=== PATIENT | female | born 1975 | race Caucasian/White ===

== ENCOUNTER → 2016-05-29 | Outpatient (CLI) | payer MEDICAID, OTHER | LOC: MW.CHRC 14:40 | PROVIDERS: ATTEND Family Medicine | DX: N20.0 Calculus of kidney (principal); N39.0 Urinary tract infection, site not specified | CPT/HCPCS: 81001; 87086 ==

== ENCOUNTER 2016-09-09 14:38 | Emergency (ER) | payer SELFPAY ==
--- NOTE | 2016-09-09 14:53 | EDM.PDOC ---
ED HPI GENERAL MEDICAL PROBLEM - General Chief Complaint: Flank Pain Stated Complaint: PAIN ON URINATION Time Seen by Provider: 09/09/16 14:49 - History of Present Illness INITIAL COMMENTS - FREE TEXT/NARRATIVE: HISTORY AND PHYSICAL: History of present illness: Patient 41-year-old female presents with a concern of dysuria frequency and right flank pain she has had both urinary tract infections in the past with similar symptoms as well as urolithiasis denies nausea vomiting fever chills or other complaints is been no trauma patient has had hysterectomy Review of systems: As per history of present illness and below otherwise all systems reviewed and negative. Past medical history: As per history of present illness and as reviewed below otherwise noncontributory. Surgical history: As per history of present illness and as reviewed below otherwise noncontributory. Social history: No reported history of drug or alcohol abuse. Family history: As per history of present illness and as reviewed below otherwise noncontributory. Physical exam: HEENT: Atraumatic, normocephalic, pupils reactive, negative for conjunctival pallor or scleral icterus, mucous membranes moist, throat clear, neck supple, nontender, trachea midline. Lungs: Clear to auscultation, breath sounds equal bilaterally, chest nontender. Heart: S1S2, regular, negative for clicks, rubs, or JVD. Abdomen: Soft, nondistended, nontender. Negative for masses or hepatosplenomegaly. Equivocal right-sided costovertebral tenderness. Pelvis: Stable nontender. Genitourinary: Deferred. Rectal: Deferred. Extremities: Atraumatic, negative for cords or calf pain. Neurovascular unremarkable. Neuro: Awake, alert, oriented. Cranial nerves II through XII unremarkable. Cerebellum unremarkable. Motor and sensory unremarkable throughout. Exam nonfocal. Diagnostics: UA C&S CT abdomen and pelvis Therapeutics: None Impression: #1 dysuria #2 history of urolithiasis Definitive disposition and diagnosis as appropriate pending reevaluation and review of above. Right Flank Pain Score (Numeric/FACES): 7 - Related Data Allergies Allergy/AdvReac Type Severity Reaction Status Date / Time acetaminophen Allergy Other Verified 09/09/16 14:48 [From Darvocet-N] codeine Allergy Itching Verified 09/09/16 14:48 ketorolac tromethamine Allergy Burning Verified 09/09/16 14:48 [From Toradol] propoxyphene napsylate Allergy Other Verified 09/09/16 14:48 [From Darvocet-N] tramadol Allergy Burning Verified 09/09/16 14:48 Home Meds: Home Meds Cyclobenzaprine [Flexeril] 10 mg PO TID 09/09/16 [History] SUMAtriptan [Imitrex] 50 mg PO ASDIRECTED PRN 09/09/16 [History] Past Medical History Genitourinary History: Reports: Renal Calculus, UTI, 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: Musculoskeletal History: Reports: Fracture - Past Surgical History HEENT Surgical History: Reports: Oral Surgery, Tonsillectomy Social & Family History - Family History Family Medical History: Noncontributory - Tobacco Use Smoking Status *Q: Current Every Day Smoker Years of Tobacco use: 26 Packs/Tins Daily: 0.5 Used Tobacco, but Quit: No Second Hand Smoke Exposure: Yes - Caffeine Use Caffeine Use: Reports: Soda - Alcohol Use Days Per Week of Alcohol Use: 0 - Recreational Drug Use Recreational Drug Use: No ED ROS GENERAL - Review of Systems Review Of Systems: ROS reveals no pertinent complaints other than HPI. ED EXAM, GENERAL - Physical Exam Exam: See Below (See dictation) Course - Vital Signs Last Recorded V/S: Last Vital Signs Temp 37.1 C 09/09/16 14:45 Pulse 99 09/09/16 14:45 Resp 18 09/09/16 14:45 BP 123/87 09/09/16 14:45 Pulse Ox 95 09/09/16 14:45 - Orders/Labs/Meds Orders: Active Orders 24 hr Category Date Time Status CULTURE URINE [RM] Stat Lab 09/09/16 14:50 Received Labs: Laboratory Tests 09/09/16 Range/Units 14:50 Urine Color ORANGE Urine Appearance SLT CLOUDY Urine pH 6.5 (5.0-8.0) Ur Specific [place] 1.010 (1.001-1.035) Urine Protein >=300 (NEGATIVE) mg/dL Urine Glucose (UA) 500 H (NEGATIVE) mg/dL Urine Ketones 15 H (NEGATIVE) mg/dL Urine Occult Blood LARGE H (NEGATIVE) Urine Nitrite POSITIVE H (NEGATIVE) Urine Bilirubin NEGATIVE (NEGATIVE) Urine Urobilinogen >=8.0 H (<2.0) EU/dL Ur Leukocyte Esterase MODERATE (NEGATIVE) Urine RBC 5-10 (0-2/HPF) Urine WBC 4-8 (0-5/HPF) Ur Epithelial Cells OCCASIONAL (NONE-FEW) Urine Bacteria FEW (NEGATIVE) Urinalysis Comment Departure - Departure Time of Disposition: 16:41 Disposition: Home, Self-Care 01 Condition: Good Clinical Impression: UTI, Urinary tract infectious disease - Discharge Information Referrals: PCP,Unknown [Primary Care Provider] - Forms: ED Department Discharge Additional Instructions: The following information is given to patients seen in the emergency department who are being discharged to home. This information is to outline your options for follow-up care. We provide all patients seen in our emergency department with a follow-up referral. The need for follow-up, as well as the timing and circumstances, are variable depending upon the specifics of your emergency department visit. If you don't have a primary care physician on staff, we will provide you with a referral. We always advise you to contact your personal physician following an emergency department visit to inform them of the circumstance of the visit and for follow-up with them and/or the need for any referrals to a consulting specialist. The emergency department will also refer you to a specialist when appropriate. This referral assures that you have the opportunity for followup care with a specialist. All of these measure are taken in an effort to provide you with optimal care, which includes your followup. Under all circumstances we always encourage you to contact your private physician who remains a resource for coordinating your care. When calling for followup care, please make the office aware that this follow-up is from your recent emergency room visit. If for any reason you are refused follow-up, please contact the [facility] emergency department at and asked to speak to the emergency department charge nurse. Cipro as prescribed follow-up primary medical doctor 1-2 days return as needed as discussed - My Orders Last 24 Hours: My Active Orders 09/09/16 14:50 CULTURE URINE [RM] Stat - Assessment/Plan Last 24 Hours: My Active Orders 09/09/16 14:50 CULTURE URINE [RM] Stat
--- NOTE | 2016-09-09 15:54 | CT ---
CT of the abdomen and pelvis without contrast. HISTORY: Pain TECHNIQUE: Axial CT images were obtained of the abdomen and pelvis without contrast. Coronal and sag ittal reconstructions obtained. FINDINGS: The lung bases are clear, no pleural effusion. The liver, spleen, adrenal glands, and pancreas appear unremarkable for noncontrast examination. Cho lecystectomy with mild prominence of the bile duct. There is no bulky retroperitoneal lymphadenopath y. No abdominal ascites. Punctate nonobstructing nephrolithiasis bilaterally. No evidence of obstructive uropathy bilaterally . The large and small bowel are normal in caliber without evidence of obstruction. No pericecal inflam mation. There is no bulky pelvic lymphadenopathy. No free fluid. No free air. The urinary bladder ap pears normal. Pelvic phleboliths are noted. The visualized osseous structures appear normal. IMPRESSION: 1. Nonobstructing nephrolithiasis noted bilaterally. 2. Otherwise no acute findings within the abdomen or pelvis. 3. Cholecystectomy
[2016-09-09 16:53] VITALS: BP 120/87
== END 2016-09-09 16:54 | disposition home or self-care (01) ==
LOC: MW.ED 14:38
DX: N39.0 Urinary tract infection, site not specified (principal); F17.210 Nicotine dependence, cigarettes, uncomplicated; Z98.890 Other specified postprocedural states; Z88.5 Allergy status to narcotic agent; Z88.6 Allergy status to analgesic agent; Z88.8 Allergy status to other drugs, medicaments and biological substances; Z90.710 Acquired absence of both cervix and uterus
CPT/HCPCS: 74176; 74176-26; 81001; 87086; 87088; 87186; 99284; 99284-25

== ENCOUNTER 2016-09-30 10:58 | Emergency (ER) | payer SELFPAY ==
[2016-09-30] MEDS ORDERED: Sodium Chloride 0.9% 10 ML Syringe FLUSH PRN (11:31)
[2016-09-30] MEDS ORDERED: Sodium Chloride 0.9% 2.5 ML Syringe FLUSH PRN (11:31)
[2016-09-30] MEDS ORDERED: cefTRIAXone 1 GM in Premix Bag 1 BAG IV ONE (11:35)
[2016-09-30] MEDS ORDERED: Sodium Chloride 0.9% 1,000 ML IV ONE ×2 (11:35→12:34)
--- NOTE | 2016-09-30 11:39 | EDM.PDOC ---
ED HPI GENERAL MEDICAL PROBLEM - General Chief Complaint: Genitourinary Problem Stated Complaint: URINARY PAIN Time Seen by Provider: 09/30/16 11:01 Source of Information: Reports: Patient History Limitations: Reports: No Limitations - History of Present Illness INITIAL COMMENTS - FREE TEXT/NARRATIVE: HISTORY AND PHYSICAL: []41-year-old female presenting with flank pain abdominal pain return of her urinary symptoms History of Present Illness: []Patient was seen 09/09/16 and diagnosed with pyelonephritis she has been on ciprofloxacin since that time Symptoms started to recur at 4:30 this morning Review of Systems: As per history of present illness and below otherwise all systems reviewed and negative. Past medical history: As per history of present illness and as reviewed below otherwise noncontributory. Surgical history: As per history of present illness and as reviewed below otherwise noncontributory. Social history: No reported history of drug or alcohol abuse. Family history: As per history of present illness and as reviewed below otherwise noncontributory. Physical exam: Alert and oriented female answering questions appropriately she has significant "shaking" HEENT: Atraumatic, normocehpalic, pupils reactive, negative for conjunctival pallor or scleral icterus, mucous membranes moist, throat clear, neck supple, nontender, trachea midline. Lungs: Clear to auscultation, breath sounds equal bilaterally, chest non tender. Heart: S1S2, regular, negative for clicks, rubs, or JVD. Abdomen: Soft, nondistended, nontender. Negative for masses or hepatossplenmegaly. Exquisitely tender right costovertebral. Pelvis: Stable nontender. Genitourinary: Deferred. Rectal: Deferred Extremities: Atraumatic, negative for cords or calf pain. Neurovascular unremarkable. Neuro: Awake, alert, oriented. Cranial nerves II through XII unremarkable. Cerebellum unremarkable. Motor and sensory unremarkable throughout. Exam nonfocal. Diagnostics: [CBC CMP blood cultures 2 urine urine culture] Therapeutics: [Normal saline/Rocephin 1 g IV] Impression: [Pyelonephritis] Plan: [Patient is tolerated all procedures well has kept fluids down IV fluids 2 L were tolerated home and daily Levaquin] Definitive disposition and diagnosis as appropriate pending reevaluation and review of above. Onset: Sudden Duration: Hour(s): Location: Reports: Abdomen, Back Quality: Reports: Throbbing Severity: Moderate Improves with: Reports: None Worsens with: Reports: None left flank Pain Score (Numeric/FACES): 8 - Related Data Allergies Allergy/AdvReac Type Severity Reaction Status Date / Time acetaminophen Allergy Other Verified 09/30/16 11:26 [From Darvocet-N] codeine Allergy Itching Verified 09/30/16 11:26 ketorolac tromethamine Allergy Burning Verified 09/30/16 11:26 [From Toradol] propoxyphene napsylate Allergy Other Verified 09/30/16 11:26 [From Darvocet-N] tramadol Allergy Burning Verified 09/30/16 11:26 Home Meds: Home Meds Cyclobenzaprine [Flexeril] 10 mg PO TID PRN 09/09/16 [History] SUMAtriptan [Imitrex] mg PO ASDIRECTED PRN 09/09/16 [History] Levofloxacin [Levaquin] 750 mg PO DAILY #10 tablet 09/30/16 [Rx] Ondansetron [Zofran ODT] 4 mg PO Q6H #10 tab.dis 09/30/16 [Rx] Past Medical History Genitourinary History: Reports: Renal Calculus, UTI, 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: Musculoskeletal History: Reports: Fracture Neurological History: Reports: Migraines - Infectious Disease History Infectious Disease History: Reports: Other (See Below) Other Infectious Disease History: [place] measles - Past Surgical History HEENT Surgical History: Reports: Oral Surgery, Tonsillectomy GI Surgical History: Reports: Appendectomy, Cholecystectomy Social & Family History - Family History Family Medical History: Noncontributory - Tobacco Use Smoking Status *Q: Current Every Day Smoker Years of Tobacco use: 27 Packs/Tins Daily: 1 Used Tobacco, but Quit: No Second Hand Smoke Exposure: Yes - Caffeine Use Caffeine Use: Reports: Soda - Alcohol Use Days Per Week of Alcohol Use: 0 - Recreational Drug Use Recreational Drug Use: No ED ROS GENERAL - Review of Systems Review Of Systems: ROS reveals no pertinent complaints other than HPI. ED EXAM, RENAL/ - Physical Exam Exam: See Below (See dictation) Course - Vital Signs Last Recorded V/S: Last Vital Signs Temp 37.6 C 09/30/16 12:49 Pulse 79 09/30/16 13:30 Resp 18 09/30/16 13:30 BP 101/53 L 09/30/16 13:30 Pulse Ox 96 09/30/16 13:30 - Orders/Labs/Meds Orders: Active Orders 24 hr Category Date Time Status CULTURE BLOOD [BC] Stat Lab 09/30/16 11:49 Received CULTURE BLOOD [BC] Stat Lab 09/30/16 12:02 Received CULTURE URINE [RM] Stat Lab 09/30/16 11:30 Received Sodium Chloride 0.9% [Saline Flush] Med 09/30/16 11:31 Active 10 ml FLUSH ASDIRECTED PRN Sodium Chloride 0.9% [Saline Flush] Med 09/30/16 11:31 Active 2.5 ml FLUSH ASDIRECTED PRN Blood Culture x2 Reflex Set [OM.PC] Stat Oth 09/30/16 11:32 Ordered Saline Lock Insert [OM.PC] Stat Oth 09/30/16 11:31 Ordered Medication Orders Sodium Chloride (Saline Flush) 10 ml FLUSH ASDIRECTED PRN PRN Reason: Keep Vein Open Sodium Chloride (Saline Flush) 2.5 ml FLUSH ASDIRECTED PRN PRN Reason: Keep Vein Open Labs: Laboratory Tests 09/30/16 09/30/16 09/30/16 Range/Units 11:30 11:49 11:49 WBC 13.18 H (4.0-11.0) K/uL RBC 4.42 (4.30-5.90) M/uL Hgb 14.1 (12.0-16.0) g/dL Hct 42.0 (36.0-46.0) % MCV 95.0 (80.0-98.0) fL MCH 31.9 (27.0-32.0) pg MCHC 33.6 (31.0-37.0) g/dL RDW Std Deviation 48.0 (28.0-62.0) fl RDW Coeff of Latha 14 (11.0-15.0) % Plt Count 307 (150-400) K/uL MPV 9.70 (7.40-12.00) fL Neut % (Auto) 83.0 H (48.0-80.0) % Lymph % (Auto) 13.9 L (16.0-40.0) % [place] % (Auto) 2.5 (0.0-15.0) % Eos % (Auto) 0.4 (0.0-7.0) % Baso % (Auto) 0.2 (0.0-1.5) % Neut # (Auto) 11.0 H (1.4-5.7) K/uL Lymph # (Auto) 1.8 (0.6-2.4) K/uL [place] # (Auto) 0.3 (0.0-0.8) K/uL Eos # (Auto) 0.1 (0.0-0.7) K/uL Baso # (Auto) 0.0 (0.0-0.1) K/uL Nucleated RBC % 0.0 /100WBC Nucleated RBCs # 0 K/uL Lactate 1.4 (0.20-2.00) mmol/L Sodium (136-146) mmol/L Potassium (3.5-5.1) mmol/L Chloride (98-110) mmol/L Carbon Dioxide (21-31) mmol/L BUN (6.0-23.0) mg/dL Creatinine (0.6-1.5) mg/dL Est Cr Clr Drug Dosing mL/min Estimated GFR (MDRD) ml/min Glucose (60-110) mg/dL Calcium (8.8-10.8) mg/dL Total Bilirubin (0.1-1.5) mg/dL AST (5-40) IU/L ALT (8-54) IU/L Alkaline Phosphatase (40-150) Total Protein (6.0-8.0) g/dL Albumin (3.5-5.0) g/dL Globulin (2.0-3.5) g/dL Albumin/Globulin Ratio (1.3-2.8) Urine Color YELLOW Urine Appearance HAZY Urine pH 6.0 (5.0-8.0) Ur Specific [place] 1.020 (1.001-1.035) Urine Protein 30 (NEGATIVE) mg/dL Urine Glucose (UA) NEGATIVE (NEGATIVE) mg/dL Urine Ketones NEGATIVE (NEGATIVE) mg/dL Urine Occult Blood MODERATE (NEGATIVE) Urine Nitrite POSITIVE H (NEGATIVE) Urine Bilirubin NEGATIVE (NEGATIVE) Urine Urobilinogen >=8.0 H (<2.0) EU/dL Ur Leukocyte Esterase MODERATE (NEGATIVE) Urine RBC 4-6 (0-2/HPF) Urine WBC 20-25 (0-5/HPF) Ur Epithelial Cells FEW (NONE-FEW) Urine Bacteria 1+ H (NEGATIVE) 09/30/16 Range/Units 11:49 WBC (4.0-11.0) K/uL RBC (4.30-5.90) M/uL Hgb (12.0-16.0) g/dL Hct (36.0-46.0) % MCV (80.0-98.0) fL MCH (27.0-32.0) pg MCHC (31.0-37.0) g/dL RDW Std Deviation (28.0-62.0) fl RDW Coeff of [place] (11.0-15.0) % Plt Count (150-400) K/uL MPV (7.40-12.00) fL Neut % (Auto) (48.0-80.0) % Lymph % (Auto) (16.0-40.0) % [place] % (Auto) (0.0-15.0) % Eos % (Auto) (0.0-7.0) % Baso % (Auto) (0.0-1.5) % Neut # (Auto) (1.4-5.7) K/uL Lymph # (Auto) (0.6-2.4) K/uL [place] # (Auto) (0.0-0.8) K/uL Eos # (Auto) (0.0-0.7) K/uL Baso # (Auto) (0.0-0.1) K/uL Nucleated RBC % /100WBC Nucleated RBCs # K/uL Lactate (0.20-2.00) mmol/L Sodium 140 (136-146) mmol/L Potassium 3.5 (3.5-5.1) mmol/L Chloride 107 (98-110) mmol/L Carbon Dioxide 22 (21-31) mmol/L BUN 4 L (6.0-23.0) mg/dL Creatinine 0.8 (0.6-1.5) mg/dL Est Cr Clr Drug Dosing 78.10 mL/min Estimated GFR (MDRD) > 60.0 ml/min Glucose 104 (60-110) mg/dL Calcium 9.2 (8.8-10.8) mg/dL Total Bilirubin 1.5 (0.1-1.5) mg/dL AST 157 H (5-40) IU/L ALT 102 H (8-54) IU/L Alkaline Phosphatase 185 H (40-150) Total Protein 7.4 (6.0-8.0) g/dL Albumin 4.0 (3.5-5.0) g/dL Globulin 3.4 (2.0-3.5) g/dL Albumin/Globulin Ratio 1.2 L (1.3-2.8) Urine Color Urine Appearance Urine pH (5.0-8.0) Ur Specific [place] (1.001-1.035) Urine Protein (NEGATIVE) mg/dL Urine Glucose (UA) (NEGATIVE) mg/dL Urine Ketones (NEGATIVE) mg/dL Urine Occult Blood (NEGATIVE) Urine Nitrite (NEGATIVE) Urine Bilirubin (NEGATIVE) Urine Urobilinogen (<2.0) EU/dL Ur Leukocyte Esterase (NEGATIVE) Urine RBC (0-2/HPF) Urine WBC (0-5/HPF) Ur Epithelial Cells (NONE-FEW) Urine Bacteria (NEGATIVE) Meds: Medications Generic Name Dose Route Start Last Admin Trade Name Freq PRN Reason Stop Dose Admin Sodium Chloride 10 ml 09/30/16 11:31 Saline Flush FLUSH ASDIRECTED PRN Keep Vein Open Sodium Chloride 2.5 ml 09/30/16 11:31 Saline Flush FLUSH ASDIRECTED PRN Keep Vein Open Discontinued Medications Generic Name Dose Route Start Last Admin Trade Name Frekash PRN Reason Stop Dose Admin Sodium Chloride 1,000 mls @ 999 mls/hr 09/30/16 11:35 09/30/16 12:39 Normal Saline IV 09/30/16 12:35 999 mls/hr STAT ONE Infusion Ceftriaxone Sodium/Dextrose 1 50 mls @ 100 mls/hr 09/30/16 11:35 09/30/16 12: 06 gm/ Premix IV 09/30/16 12:04 100 mls/hr ONETIME ONE Administration Sodium Chloride 1,000 mls @ 999 mls/hr 09/30/16 12:34 09/30/16 13:24 Normal Saline IV 09/30/16 13:34 999 mls/hr STAT ONE Administration Ibuprofen 800 mg 09/30/16 12:10 09/30/16 12:47 Motrin PO 09/30/16 12:11 800 mg ONETIME ONE Administration Morphine Sulfate 2 mg 09/30/16 12:56 09/30/16 13:51 Morphine IV 09/30/16 12:57 Not Given ONETIME ONE Morphine Sulfate 2 mg 09/30/16 13:39 09/30/16 13:50 Morphine IVPUSH 09/30/16 13:40 2 mg ONETIME ONE Administration Ondansetron HCl 4 mg 09/30/16 11:41 09/30/16 11:53 Zofran IVPUSH 09/30/16 11:42 4 mg ONETIME ONE Administration Departure - Departure Time of Disposition: 14:16 Disposition: Home, Self-Care 01 Condition: Good Clinical Impression: Pyelonephritis - Discharge Information Prescriptions: Levofloxacin [Levaquin] 750 mg PO DAILY #10 tablet Ondansetron [Zofran ODT] 4 mg PO Q6H #10 tab.dis Referrals: Shalonda Sams MD [Primary Care Provider] - Forms: ED Department Discharge - My Orders Last 24 Hours: My Active Orders 09/30/16 11:30 CULTURE URINE [RM] Stat 09/30/16 11:31 Sodium Chloride 0.9% [Saline Flush] 10 ml FLUSH ASDIRECTED PRN Sodium Chloride 0.9% [Saline Flush] 2.5 ml FLUSH ASDIRECTED PRN Saline Lock Insert [OM.PC] Stat 09/30/16 11:32 Blood Culture x2 Reflex Set [OM.PC] Stat 09/30/16 11:49 CULTURE BLOOD [BC] Stat 09/30/16 12:02 CULTURE BLOOD [BC] Stat - Assessment/Plan Last 24 Hours: My Active Orders 09/30/16 11:30 CULTURE URINE [RM] Stat 09/30/16 11:31 Sodium Chloride 0.9% [Saline Flush] 10 ml FLUSH ASDIRECTED PRN Sodium Chloride 0.9% [Saline Flush] 2.5 ml FLUSH ASDIRECTED PRN Saline Lock Insert [OM.PC] Stat 09/30/16 11:32 Blood Culture x2 Reflex Set [OM.PC] Stat 09/30/16 11:49 CULTURE BLOOD [BC] Stat 09/30/16 12:02 CULTURE BLOOD [BC] Stat
[2016-09-30] MEDS ORDERED: Ondansetron 4 MG/2 ML SDV IVPUSH ONE (11:41)
[2016-09-30] MEDS ORDERED: Ibuprofen 800 MG Tab PO ONE (12:10)
[2016-09-30 12:34] LABS: CHLORIDE,CL 107 mmol/L (98-110); SODIUM,NA 140 mmol/L (136-146)
[2016-09-30] MEDS ORDERED: Morphine 10 MG/ML Syringe IV ONE (12:56)
[2016-09-30] MEDS ORDERED: Morphine 2 MG/ML Syringe IVPUSH ONE (13:39)
[2016-09-30 19:32] VITALS: BP 102/53
== END 2016-09-30 14:35 | disposition home or self-care (01) ==
LOC: MW.ED 10:58
DX: N12 Tubulo-interstitial nephritis, not specified as acute or chronic (principal); F17.210 Nicotine dependence, cigarettes, uncomplicated; Z90.49 Acquired absence of other specified parts of digestive tract; Z98.890 Other specified postprocedural states; Z79.2 Long term (current) use of antibiotics; Z88.5 Allergy status to narcotic agent; Z88.6 Allergy status to analgesic agent; Z88.8 Allergy status to other drugs, medicaments and biological substances
CPT/HCPCS: 36415; 80053; 81001; 83605; 85025; 87040; 87086; 96361; 96365; 96375; 99284; A9270; J0696; J2270; J2405; J7040; 87077; 87088; 87186

== ENCOUNTER 2017-09-15 16:30 | Emergency (ER) | payer BC, OTHER ==
--- NOTE | 2017-09-15 17:03 | EDM.PDOC ---
ED HPI GENERAL MEDICAL PROBLEM - General Chief Complaint: General Stated Complaint: POSSIBLE INFECTION RT FOOT/POSS KIDNEY INFECTION Time Seen by Provider: 09/15/17 16:34 Source of Information: Reports: Patient History Limitations: Reports: No Limitations - History of Present Illness INITIAL COMMENTS - FREE TEXT/NARRATIVE: HISTORY AND PHYSICAL: History of present illness: [Eliza is a 42-year-old female here with complaint of possibly kidney infection and right foot infection. She states she's had dysuria, urinary frequency, right flank pain x 2 days. Chills last night. She reports history of pyelonephritis and kidney stones, states she has been seen a neurologist for this. States she's been nauseous and has had some diarrhea. She reports hematuria but states "this is not unusual for her."She states it is not a kidney infection as she knows what this feels like. Denies vomiting, abdominal pain, cough, chest pain/pressure, SOB, headache, dizziness, vaginal discharge. She also reports she cut her foot on a hose 5-6 days ago. Reports it has been draining and becoming more painful. ] Review of systems: As per history of present illness and below otherwise all systems reviewed and negative. Past medical history: As per history of present illness and as reviewed below otherwise noncontributory. Surgical history: As per history of present illness and as reviewed below otherwise noncontributory. Social history: No reported history of drug or alcohol abuse. Family history: As per history of present illness and as reviewed below otherwise noncontributory. Physical exam: HEENT: Atraumatic, normocephalic, pupils reactive, negative for conjunctival pallor or scleral icterus, mucous membranes moist, throat clear, neck supple, nontender, trachea midline. Lungs: Clear to auscultation, breath sounds equal bilaterally, chest nontender. Heart: S1S2, regular, negative for clicks, rubs, or JVD. Abdomen: Mild suprapubic tenderness. Negative for masses or hepatosplenomegaly. Right CVA tenderness. Pelvis: Stable nontender. Genitourinary: Deferred. Rectal: Deferred. Skin: 1cm healing ulceration on the medial part of the right great toe. Very minimal surrounding erythema and no warmth or drainage noted. Extremities: Atraumatic, negative for cords or calf pain. Neurovascular unremarkable. Neuro: Awake, alert, oriented. Cranial nerves II through XII unremarkable. Cerebellum unremarkable. Motor and sensory unremarkable throughout. Exam nonfocal. Notes: Patient offered CT scan to look for kidney stones which she declined Diagnostics: [CBC, CMP, UA, urine culture, urine hcg] Therapeutics: [Bactrim ] Impression: [Wound infection Hematuria] Plan: [#1 Take antibiotic as directed #2 follow up with your PCP #3 return to ED as needed as discussed ] Definitive disposition and diagnosis as appropriate pending reevaluation and review of above. right big toe , right flank pain Pain Score (Numeric/FACES): 7 - Related Data Allergies Allergy/AdvReac Type Severity Reaction Status Date / Time acetaminophen Allergy Other Verified 09/15/17 16:51 [From Darvocet-N] codeine Allergy Itching Verified 09/15/17 16:51 ketorolac tromethamine Allergy Burning Verified 09/15/17 16:51 [From Toradol] propoxyphene napsylate Allergy Other Verified 09/15/17 16:51 [From Darvocet-N] tramadol Allergy Burning Verified 09/15/17 16:51 Home Meds: Home Meds . 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: Musculoskeletal History: Reports: Fracture Neurological History: Reports: Migraines - Infectious Disease History Infectious Disease History: Reports: Other (See Below) Other Infectious Disease History: citizen of [place] measles - Past Surgical History HEENT Surgical History: Reports: Oral Surgery, Tonsillectomy GI Surgical History: Reports: Appendectomy, Cholecystectomy Social & Family History - Family History Family Medical History: Noncontributory - Caffeine Use Caffeine Use: Reports: Soda ED ROS GENERAL - Review of Systems Review Of Systems: ROS reveals no pertinent complaints other than HPI. ED EXAM, GENERAL - Physical Exam Exam: See Below (see dictation) Course - Vital Signs Last Recorded V/S: Last Vital Signs Temp 36.2 C 09/15/17 16:51 Pulse 98 09/15/17 16:51 Resp 20 09/15/17 16:51 BP 110/79 09/15/17 16:51 Pulse Ox 98 09/15/17 16:51 - Orders/Labs/Meds Orders: Active Orders 24 hr Category Date Time Status CULTURE URINE [RM] Stat Lab 09/15/17 17:29 Received HCG QUALITATIVE,URINE [URCHEM] Stat Lab 09/15/17 17:29 Ordered UA W/MICROSCOPIC [URIN] Stat Lab 09/15/17 17:29 Ordered Labs: Laboratory Tests 09/15/17 09/15/17 09/15/17 Range/Units 16:58 16:58 17:29 WBC 12.63 H (4.0-11.0) K/uL RBC 4.56 (4.30-5.90) M/uL Hgb 15.0 (12.0-16.0) g/dL Hct 42.7 (36.0-46.0) % MCV 93.6 (80.0-98.0) fL MCH 32.9 H (27.0-32.0) pg MCHC 35.1 (31.0-37.0) g/dL RDW Std Deviation 48.8 (28.0-62.0) fl RDW Coeff of [place] 14 (11.0-15.0) % Plt Count 373 (150-400) K/uL MPV 10.50 (7.40-12.00) fL Neut % (Auto) 67.1 (48.0-80.0) % Lymph % (Auto) 24.6 (16.0-40.0) % [place] % (Auto) 6.7 (0.0-15.0) % Eos % (Auto) 1.2 (0.0-7.0) % Baso % (Auto) 0.4 (0.0-1.5) % Neut # (Auto) 8.5 H (1.4-5.7) K/uL Lymph # (Auto) 3.1 H (0.6-2.4) K/uL [place] # (Auto) 0.8 (0.0-0.8) K/uL Eos # (Auto) 0.2 (0.0-0.7) K/uL Baso # (Auto) 0.1 (0.0-0.1) K/uL Nucleated RBC % 0.0 /100WBC Nucleated RBCs # 0 K/uL Sodium 137 (136-145) mmol/L Potassium 4.0 (3.5-5.1) mmol/L Chloride 105 (98-107) mmol/L Carbon Dioxide 26.4 (21.0-32.0) mmol/L BUN 8 (7.0-18.0) mg/dL Creatinine 0.9 (0.6-1.0) mg/dL Est Cr Clr Drug Dosing 77.79 mL/min Estimated GFR (MDRD) > 60.0 ml/min Glucose 83 (74-106) mg/dL Calcium 9.0 (8.5-10.1) mg/dL Total Bilirubin 0.5 (0.2-1.0) mg/dL AST 39 H (15-37) IU/L ALT 47 (14-63) IU/L Alkaline Phosphatase 104 (46-116) U/L Total Protein 7.2 (6.4-8.2) g/dL Albumin 3.6 (3.4-5.0) g/dL Globulin 3.6 H (2.0-3.5) g/dL Albumin/Globulin Ratio 1.0 L (1.3-2.8) Urine Color YELLOW Urine Appearance CLEAR Urine pH 5.5 (5.0-8.0) Ur Specific [place] <= 1.005 (1.001-1.035) Urine Protein NEGATIVE (NEGATIVE) mg/dL Urine Glucose (UA) NEGATIVE (NEGATIVE) mg/dL Urine Ketones NEGATIVE (NEGATIVE) mg/dL Urine Occult Blood LARGE H (NEGATIVE) Urine Nitrite NEGATIVE (NEGATIVE) Urine Bilirubin NEGATIVE (NEGATIVE) Urine Urobilinogen 0.2 (<2.0) EU/dL Ur Leukocyte Esterase NEGATIVE (NEGATIVE) Urine RBC 10-15 (0-2/HPF) Urine WBC 0-2 (0-5/HPF) Ur Epithelial Cells MODERATE (NONE-FEW) Urine Bacteria FEW (NEGATIVE) Urine HCG, Qual (NEGATIVE) 09/15/17 Range/Units 17:29 WBC (4.0-11.0) K/uL RBC (4.30-5.90) M/uL Hgb (12.0-16.0) g/dL Hct (36.0-46.0) % MCV (80.0-98.0) fL MCH (27.0-32.0) pg MCHC (31.0-37.0) g/dL RDW Std Deviation (28.0-62.0) fl RDW Coeff of [place] (11.0-15.0) % Plt Count (150-400) K/uL MPV (7.40-12.00) fL Neut % (Auto) (48.0-80.0) % Lymph % (Auto) (16.0-40.0) % [place] % (Auto) (0.0-15.0) % Eos % (Auto) (0.0-7.0) % Baso % (Auto) (0.0-1.5) % Neut # (Auto) (1.4-5.7) K/uL Lymph # (Auto) (0.6-2.4) K/uL [place] # (Auto) (0.0-0.8) K/uL Eos # (Auto) (0.0-0.7) K/uL Baso # (Auto) (0.0-0.1) K/uL Nucleated RBC % /100WBC Nucleated RBCs # K/uL Sodium (136-145) mmol/L Potassium (3.5-5.1) mmol/L Chloride (98-107) mmol/L Carbon Dioxide (21.0-32.0) mmol/L BUN (7.0-18.0) mg/dL Creatinine (0.6-1.0) mg/dL Est Cr Clr Drug Dosing mL/min Estimated GFR (MDRD) ml/min Glucose (74-106) mg/dL Calcium (8.5-10.1) mg/dL Total Bilirubin (0.2-1.0) mg/dL AST (15-37) IU/L ALT (14-63) IU/L Alkaline Phosphatase (46-116) U/L Total Protein (6.4-8.2) g/dL Albumin (3.4-5.0) g/dL Globulin (2.0-3.5) g/dL Albumin/Globulin Ratio (1.3-2.8) Urine Color Urine Appearance Urine pH (5.0-8.0) Ur Specific [place] (1.001-1.035) Urine Protein (NEGATIVE) mg/dL Urine Glucose (UA) (NEGATIVE) mg/dL Urine Ketones (NEGATIVE) mg/dL Urine Occult Blood (NEGATIVE) Urine Nitrite (NEGATIVE) Urine Bilirubin (NEGATIVE) Urine Urobilinogen (<2.0) EU/dL Ur Leukocyte Esterase (NEGATIVE) Urine RBC (0-2/HPF) Urine WBC (0-5/HPF) Ur Epithelial Cells (NONE-FEW) Urine Bacteria (NEGATIVE) Urine HCG, Qual NEGATIVE (NEGATIVE) Departure - Departure Time of Disposition: 18:16 Disposition: Home, Self-Care 01 Condition: Good Clinical Impression: Wound infection, Hematuria - Discharge Information Referrals: PCP,None [Primary Care Provider] - Forms: ED Department Discharge Additional Instructions: The following information is given to patients seen in the emergency department who are being discharged to home. This information is to outline your options for follow-up care. We provide all patients seen in our emergency department with a follow-up referral. The need for follow-up, as well as the timing and circumstances, are variable depending upon the specifics of your emergency department visit. If you don't have a primary care physician on staff, we will provide you with a referral. We always advise you to contact your personal physician following an emergency department visit to inform them of the circumstance of the visit and for follow-up with them and/or the need for any referrals to a consulting specialist. The emergency department will also refer you to a specialist when appropriate. This referral assures that you have the opportunity for follow-up care with a specialist. All of these measure are taken in an effort to provide you with optimal care, which includes your follow-up. Under all circumstances we always encourage you to contact your private physician who remains a resource for coordinating your care. When calling for follow-up care, please make the office aware that this follow-up is from your recent emergency room visit. If for any reason you are refused follow-up, please contact the [facility] Emergency Department at and asked to speak to the emergency department charge nurse. [facility] [address] [place] [id number] [id number] - My Orders Last 24 Hours: My Active Orders 09/15/17 17:29 CULTURE URINE [RM] Stat HCG QUALITATIVE,URINE [URCHEM] Stat UA W/MICROSCOPIC [URIN] Stat - Assessment/Plan Last 24 Hours: My Active Orders 09/15/17 17:29 CULTURE URINE [RM] Stat HCG QUALITATIVE,URINE [URCHEM] Stat UA W/MICROSCOPIC [URIN] Stat
[2017-09-15 17:32] LABS: CHLORIDE,CL 105 mmol/L (98-107); SODIUM,NA 137 mmol/L (136-145)
[2017-09-15 18:30] VITALS: BP 107/67
== END 2017-09-15 18:30 | disposition home or self-care (01) ==
LOC: MW.ED 16:30
DX: L97.511 Non-pressure chronic ulcer of other part of right foot limited to breakdown of skin (principal); L08.9 Local infection of the skin and subcutaneous tissue, unspecified; R31.9 Hematuria, unspecified; Z88.6 Allergy status to analgesic agent; Z88.5 Allergy status to narcotic agent; Z88.8 Allergy status to other drugs, medicaments and biological substances
CPT/HCPCS: 36415; 80053; 81001; 81025; 85025; 87086; 99283; 99284

== ENCOUNTER 2017-09-16 23:30 | Emergency (ER) | payer BC ==
[2017-09-17 01:24] LABS: CHLORIDE,CL 106 mmol/L (98-107); SODIUM,NA 141 mmol/L (136-145)
[2017-09-17] MEDS ORDERED: Acetaminophen/HYDROcodone 325-10 MG Tab PO ONE (02:33)
--- NOTE | 2017-09-17 02:38 | EDM.PDOC ---
ED HPI GENERAL MEDICAL PROBLEM - General Chief Complaint: Flank Pain Stated Complaint: POSSIBLE KIDNEY STONES Time Seen by Provider: 09/16/17 23:33 Source of Information: Reports: Patient History Limitations: Reports: No Limitations - History of Present Illness INITIAL COMMENTS - FREE TEXT/NARRATIVE: HISTORY AND PHYSICAL: History of present illness: 42-year-old female visiting emergency department with chief complaint of bilateral flank pain 3 days with past medical history kidney stones. Patient states that for the past 3 days she's had bilateral flank pain left worse than right. Today the pain seemed to get more severe so she came in emergency department for further evaluation. She was in emergency department on 09/15 for similar symptoms but at that time denied a CT scan. States that the pain is gotten worse since then. As above patient has a history of kidney stones and has been seeing a multiple coil winder in [place] for this. States that she has not seen them in quite some time because she lost her insurance. She now has insurance and plans to follow-up with him as soon as possible. Patient has associated nausea, vomiting, and chills with no subjective fever. She does have dysuria and hematuria. She denies any abdominal pain, cough, sore throat, or vaginal discharge. Patient currently denies any chest pain, palpitations, shortness of breath, syncopal episodes, or focal neurologic episodes. Patient also states that she has a infection on her right great toe that she was here on 09/15 and was unable to fill her prescription and it has since . On examination patient is acutely tender bilaterally left greater than right flanks. She also has a 1 cm ulceration on the medial right great toe with some surrounding erythema. Patient denies any history of diabetes. Review of systems: As per history of present illness and below otherwise all systems reviewed and negative. Past medical history: As per history of present illness and as reviewed below otherwise noncontributory. Surgical history: As per history of present illness and as reviewed below otherwise noncontributory. Social history: No reported history of drug or alcohol abuse. Family history: As per history of present illness and as reviewed below otherwise noncontributory. Physical exam: Please see above H&P HEENT: Atraumatic, normocephalic, pupils reactive, negative for conjunctival pallor or scleral icterus, mucous membranes moist, throat clear, neck supple, nontender, trachea midline. Lungs: Clear to auscultation, breath sounds equal bilaterally, chest nontender. Heart: S1S2, regular, negative for clicks, rubs, or JVD. Abdomen: Soft, nondistended, nontender. Negative for masses or hepatosplenomegaly. Positive for costovertebral tenderness. Pelvis: Stable nontender. Genitourinary: Deferred. Rectal: Deferred. Extremities: See above, negative for cords or calf pain. Neurovascular unremarkable. Neuro: Awake, alert, oriented. Cranial nerves II through XII unremarkable. Cerebellum unremarkable. Motor and sensory unremarkable throughout. Exam nonfocal. Diagnostics: CBC, CMP, UA/UC, lipase, CT abdomen pelvis, hCG Therapeutics: 10 mg [place] 1 by mouth, Bactrim by mouth twice a day, tamsulosin 0.4 mg by mouth daily 14 days Impression: Bilateral acute renal calculi nonobstructing Plan: CBC, CMP, UA, lipase, hCG were all unremarkable other than positive for blood in the urine. CT abdomen did show numerous small bilateral renal stones measuring up to 2 mm with no ureteral calculi or obstruction seen. Did give the patient 10 mg [place] for pain while she was in the emergency department as well as a prescription for 12 [place] by mouth 10 mg. I also gave her a prescription of tamsulosin for her stones. I instructed her to follow-up with her multiple coil winder now that she has insurance and to collect the stones if possible. In addition she should follow-up with the primary care provider which she has not seen in approximately a year. She is instructed to take medication as prescribed and return to emergency department if she had any new or worsening symptoms. I did give a prescription for Bactrim for her right great toe cellulitis. Definitive disposition and diagnosis as appropriate pending reevaluation and review of above. abdomen Pain Score (Numeric/FACES): 9 - Related Data Allergies Allergy/AdvReac Type Severity Reaction Status Date / Time acetaminophen Allergy Other Verified 09/16/17 23:52 [From Darvocet-N] codeine Allergy Itching Verified 09/16/17 23:52 ketorolac tromethamine Allergy Burning Verified 09/16/17 23:52 [From Toradol] propoxyphene napsylate Allergy Other Verified 09/16/17 23:52 [From Darvocet-N] tramadol Allergy Burning Verified 09/16/17 23:52 Home Meds: Home Meds . 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: Musculoskeletal History: Reports: Fracture Neurological History: Reports: Migraines - Infectious Disease History Infectious Disease History: Reports: Other (See Below) Other Infectious Disease History: [place] measles - Past Surgical History HEENT Surgical History: Reports: Oral Surgery, Tonsillectomy GI Surgical History: Reports: Appendectomy, Cholecystectomy Female Surgical History: Reports: Hysterectomy Social & Family History - Family History Family Medical History: Noncontributory - Tobacco Use Smoking Status *Q: Current Every Day Smoker Years of Tobacco use: 30 Packs/Tins Daily: 1 - Caffeine Use Caffeine Use: Reports: Soda - Recreational Drug Use Recreational Drug Use: No ED ROS GENERAL - Review of Systems Review Of Systems: ROS reveals no pertinent complaints other than HPI. ED EXAM, GENERAL - Physical Exam Exam: See Below Course - Vital Signs Last Recorded V/S: Last Vital Signs Temp 98.1 F 09/17/17 01:24 Pulse 57 L 09/17/17 01:24 Resp 18 09/17/17 01:24 BP 120/66 09/17/17 01:24 Pulse Ox 97 09/17/17 01:24 - Orders/Labs/Meds Orders: Active Orders 24 hr Category Date Time Status Abdomen Pelvis wo Cont [CT] Stat Exams 09/17/17 00:28 Taken CULTURE URINE [RM] Stat Lab 09/17/17 00:00 Received UA W/MICROSCOPIC [URIN] Stat Lab 09/17/17 00:00 Ordered Labs: Laboratory Tests 09/17/17 09/17/17 09/17/17 Range/Units 00:00 00:58 00:58 WBC 9.51 (4.0-11.0) K/uL RBC 4.06 L (4.30-5.90) M/uL Hgb 13.2 (12.0-16.0) g/dL Hct 38.0 (36.0-46.0) % MCV 93.6 (80.0-98.0) fL MCH 32.5 H (27.0-32.0) pg MCHC 34.7 (31.0-37.0) g/dL RDW Std Deviation 48.1 (28.0-62.0) fl RDW Coeff of [place] 14 (11.0-15.0) % Plt Count 310 (150-400) K/uL MPV 9.30 (7.40-12.00) fL Neut % (Auto) 44.8 L (48.0-80.0) % Lymph % (Auto) 46.8 H (16.0-40.0) % [place] % (Auto) 5.8 (0.0-15.0) % Eos % (Auto) 2.0 (0.0-7.0) % Baso % (Auto) 0.6 (0.0-1.5) % Neut # (Auto) 4.3 (1.4-5.7) K/uL Lymph # (Auto) 4.5 H (0.6-2.4) K/uL [place] # (Auto) 0.6 (0.0-0.8) K/uL Eos # (Auto) 0.2 (0.0-0.7) K/uL Baso # (Auto) 0.1 (0.0-0.1) K/uL Nucleated RBC % 0.0 /100WBC Nucleated RBCs # 0 K/uL Sodium 141 (136-145) mmol/L Potassium 3.7 (3.5-5.1) mmol/L Chloride 106 (98-107) mmol/L Carbon Dioxide 29.2 (21.0-32.0) mmol/L BUN 12 (7.0-18.0) mg/dL Creatinine 1.0 (0.6-1.0) mg/dL Est Cr Clr Drug Dosing 61.86 mL/min Estimated GFR (MDRD) > 60.0 ml/min Glucose 93 (74-106) mg/dL Calcium 8.7 (8.5-10.1) mg/dL Total Bilirubin 0.2 (0.2-1.0) mg/dL AST 20 (15-37) IU/L ALT 32 (14-63) IU/L Alkaline Phosphatase 93 (46-116) U/L Total Protein 6.8 (6.4-8.2) g/dL Albumin 3.5 (3.4-5.0) g/dL Globulin 3.3 (2.0-3.5) g/dL Albumin/Globulin Ratio 1.1 L (1.3-2.8) Lipase 171 (73-393) U/L HCG, Qual (NEG) Urine Color YELLOW Urine Appearance SLT CLOUDY Urine pH 6.0 (5.0-8.0) Ur Specific [place] 1.025 (1.001-1.035) Urine Protein NEGATIVE (NEGATIVE) mg/dL Urine Glucose (UA) NEGATIVE (NEGATIVE) mg/dL Urine Ketones NEGATIVE (NEGATIVE) mg/dL Urine Occult Blood LARGE H (NEGATIVE) Urine Nitrite NEGATIVE (NEGATIVE) Urine Bilirubin NEGATIVE (NEGATIVE) Urine Urobilinogen 0.2 (<2.0) EU/dL Ur Leukocyte Esterase TRACE (NEGATIVE) Urine RBC 25-30 (0-2/HPF) Urine WBC 0-2 (0-5/HPF) Ur Epithelial Cells FEW (NONE-FEW) Urine Bacteria 1+ H (NEGATIVE) Urine Mucus LIGHT (NONE-MOD) 09/17/17 Range/Units 00:58 WBC (4.0-11.0) K/uL RBC (4.30-5.90) M/uL Hgb (12.0-16.0) g/dL Hct (36.0-46.0) % MCV (80.0-98.0) fL MCH (27.0-32.0) pg MCHC (31.0-37.0) g/dL RDW Std Deviation (28.0-62.0) fl RDW Coeff of [place] (11.0-15.0) % Plt Count (150-400) K/uL MPV (7.40-12.00) fL Neut % (Auto) (48.0-80.0) % Lymph % (Auto) (16.0-40.0) % [place] % (Auto) (0.0-15.0) % Eos % (Auto) (0.0-7.0) % Baso % (Auto) (0.0-1.5) % Neut # (Auto) (1.4-5.7) K/uL Lymph # (Auto) (0.6-2.4) K/uL [place] # (Auto) (0.0-0.8) K/uL Eos # (Auto) (0.0-0.7) K/uL Baso # (Auto) (0.0-0.1) K/uL Nucleated RBC % /100WBC Nucleated RBCs # K/uL Sodium (136-145) mmol/L Potassium (3.5-5.1) mmol/L Chloride (98-107) mmol/L Carbon Dioxide (21.0-32.0) mmol/L BUN (7.0-18.0) mg/dL Creatinine (0.6-1.0) mg/dL Est Cr Clr Drug Dosing mL/min Estimated GFR (MDRD) ml/min Glucose (74-106) mg/dL Calcium (8.5-10.1) mg/dL Total Bilirubin (0.2-1.0) mg/dL AST (15-37) IU/L ALT (14-63) IU/L Alkaline Phosphatase (46-116) U/L Total Protein (6.4-8.2) g/dL Albumin (3.4-5.0) g/dL Globulin (2.0-3.5) g/dL Albumin/Globulin Ratio (1.3-2.8) Lipase (73-393) U/L HCG, Qual NEGATIVE (NEG) Urine Color Urine Appearance Urine pH (5.0-8.0) Ur Specific [place] (1.001-1.035) Urine Protein (NEGATIVE) mg/dL Urine Glucose (UA) (NEGATIVE) mg/dL Urine Ketones (NEGATIVE) mg/dL Urine Occult Blood (NEGATIVE) Urine Nitrite (NEGATIVE) Urine Bilirubin (NEGATIVE) Urine Urobilinogen (<2.0) EU/dL Ur Leukocyte Esterase (NEGATIVE) Urine RBC (0-2/HPF) Urine WBC (0-5/HPF) Ur Epithelial Cells (NONE-FEW) Urine Bacteria (NEGATIVE) Urine Mucus (NONE-MOD) Meds: Medications Discontinued Medications Generic Name Dose Route Start Last Admin Trade Name Freq PRN Reason Stop Dose Admin Hydrocodone Bitart/Acetaminophen 1 tab 09/17/17 02:33 09/17/17 02:38 [place] 325-10 Mg PO 09/17/17 02:34 1 tab ONETIME ONE Administration Departure - Departure Time of Disposition: 02:49 Disposition: Home, Self-Care 01 Condition: Good Clinical Impression: Bilateral nephrolithiasis - Discharge Information Referrals: PCP,None [Primary Care Provider] - Forms: ED Department Discharge Additional Instructions: My general discharge The following information is given to patients seen in the emergency department who are being discharged to home. This information is to outline your options for follow-up care. We provide all patients seen in our emergency department with a follow-up referral. The need for follow-up, as well as the timing and circumstances, are variable depending upon the specifics of your emergency department visit. If you don't have a primary care physician on staff, we will provide you with a referral. We always advise you to contact your personal physician following an emergency department visit to inform them of the circumstance of the visit and for follow-up with them and/or the need for any referrals to a consulting specialist. The emergency department will also refer you to a specialist when appropriate. This referral assures that you have the opportunity for follow-up care with a specialist. All of these measure are taken in an effort to provide you with optimal care, which includes your follow-up. Under all circumstances we always encourage you to contact your private physician who remains a resource for coordinating your care. When calling for follow-up care, please make the office aware that this follow-up is from your recent emergency room visit. If for any reason you are refused follow-up, please contact the [facility] Emergency Department at and asked to speak to the emergency department charge nurse. [facility] [address] [place] [address] [id number] [facility] Specialty Care - Urology [address] [place] [id number] Take medication as prescribed Follow-up with multiple coil winder as we discussed. Follow-up with [place] care provider as we discussed. Return emergency department if any new or worsening symptoms. - My Orders Last 24 Hours: My Active Orders 09/17/17 00:00 CULTURE URINE [RM] Stat UA W/MICROSCOPIC [URIN] Stat 09/17/17 00:28 Abdomen Pelvis wo Cont [CT] Stat - Assessment/Plan Last 24 Hours: My Active Orders 09/17/17 00:00 CULTURE URINE [RM] Stat UA W/MICROSCOPIC [URIN] Stat 09/17/17 00:28 Abdomen Pelvis wo Cont [CT] Stat
[2017-09-17 03:17] VITALS: BP 133/81
--- NOTE | 2017-09-17 16:36 | CT ---
EXAM DATE: 09/16/17 PATIENT'S AGE: 42 Patient: AYESHA STOKES Facility: [place], [place] Site . Site : 1975 Study: CT Abdomen/Pelvis [id number] 2:07:50 AM Ordering Physician: Juan Trammell Final Report: INDICATION: Abdominal pain, cramps, history of kidney stones TECHNIQUE: CT Abdomen and pelvis without i.v. contrast. Coronal and sagittal reformats were obtained. CONTRAST: None COMPARISON: None FINDINGS: Lower chest: Unremarkable. Liver: Unremarkable. Spleen: Unremarkable. Pancreas: Unremarkable. Gallbladder: Previous cholecystectomy noted without significant intra- or extrahepatic biliary ductal dilatation seen. Kidney: Numerous small bilateral renal stones are present measuring up to 2 mm. No ureteral calculi or obstruction seen. Adrenal: Unremarkable. Bowel: Unremarkable. The appendix is not identified. Vascular: Unremarkable. Lymph: Unremarkable. Peritoneum: Unremarkable. No pneumoperitoneum is seen. No significant ascites is noted. Pelvis: The patient is status post prior hysterectomy. Soft tissue: Unremarkable. Bone: Unremarkable for age. IMPRESSION: 1. Numerous small bilateral renal stones are present measuring up to 2 mm. No ureteral calculi or obstruction seen. Dictated by Eliseo Catalan MD @ 09/17/2017 2:23:32 AM Please note that all CT scans at this facility use dose modulation, iterative reconstruction, and/or weight-based dosing when appropriate to reduce radiation dose to as low as reasonably achievable. Dictated by: Eliseo Catalan MD @ 09/17/2017 02:24:41 (Electronic Signature) Report Signed by Proxy. [facility]
== END 2017-09-17 03:15 | disposition home or self-care (01) ==
LOC: MW.ED 23:30
DX: N20.0 Calculus of kidney (principal); L97.519 Non-pressure chronic ulcer of other part of right foot with unspecified severity; F17.210 Nicotine dependence, cigarettes, uncomplicated; Z88.6 Allergy status to analgesic agent; Z88.5 Allergy status to narcotic agent; Z88.8 Allergy status to other drugs, medicaments and biological substances
CPT/HCPCS: 36415; 74176; 80053; 81001; 83690; 84703; 85025; 87086; 87088; 87186; 99284; A9270

== ENCOUNTER 2017-09-22 01:32 | Emergency (ER) | payer BC ==
--- NOTE | 2017-09-22 01:39 | EDM.PDOC ---
ED HPI GENERAL MEDICAL PROBLEM - General Stated Complaint: KIDNEY STONES Time Seen by Provider: 09/22/17 01:36 - History of Present Illness INITIAL COMMENTS - FREE TEXT/NARRATIVE: HISTORY AND PHYSICAL: History of present illness: Patient 42-year-old female presents with concern of chronic back pain she is seen recently noted to have nephrolithiasis there was no ureteral stones or other concern she was recently put on Bactrim for an infection in her is been no nausea vomiting no fever chills no other complaints Review of systems: As per history of present illness and below otherwise all systems reviewed and negative. Past medical history: As per history of present illness and as reviewed below otherwise noncontributory. Surgical history: As per history of present illness and as reviewed below otherwise noncontributory. Social history: No reported history of drug or alcohol abuse. Family history: As per history of present illness and as reviewed below otherwise noncontributory. Physical exam: HEENT: Atraumatic, normocephalic, pupils reactive, negative for conjunctival pallor or scleral icterus, mucous membranes moist, throat clear, neck supple, nontender, trachea midline. Lungs: Clear to auscultation, breath sounds equal bilaterally, chest nontender. Heart: S1S2, regular, negative for clicks, rubs, or JVD. Abdomen: Soft, nondistended, nontender. Negative for masses or hepatosplenomegaly. Negative for costovertebral tenderness. Pelvis: Stable nontender. Genitourinary: Deferred. Rectal: Deferred. Extremities: Atraumatic, negative for cords or calf pain. Neurovascular unremarkable. Neuro: Awake, alert, oriented. Cranial nerves II through XII unremarkable. Cerebellum unremarkable. Motor and sensory unremarkable throughout. Exam nonfocal. Diagnostics: CBC CMP UA hCG Therapeutics: None Impression: 1 history of nephrolithiasis #2 medical screening Definitive disposition and diagnosis as appropriate pending reevaluation and review of above. - Related Data Allergies Allergy/AdvReac Type Severity Reaction Status Date / Time acetaminophen Allergy Other Verified 09/16/17 23:52 [From Darvocet-N] codeine Allergy Itching Verified 09/16/17 23:52 ketorolac tromethamine Allergy Burning Verified 09/16/17 23:52 [From Toradol] propoxyphene napsylate Allergy Other Verified 09/16/17 23:52 [From Darvocet-N] tramadol Allergy Burning Verified 09/16/17 23:52 Home Meds: Home Meds . 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: Musculoskeletal History: Reports: Fracture Neurological History: Reports: Migraines - Infectious Disease History Infectious Disease History: Reports: Other (See Below) Other Infectious Disease History: nauruan measles - Past Surgical History HEENT Surgical History: Reports: Oral Surgery, Tonsillectomy GI Surgical History: Reports: Appendectomy, Cholecystectomy Female Surgical History: Reports: Hysterectomy Social & Family History - Family History Family Medical History: Noncontributory - Caffeine Use Caffeine Use: Reports: Soda ED ROS GENERAL - Review of Systems Review Of Systems: ROS reveals no pertinent complaints other than HPI. ED EXAM, GENERAL - Physical Exam Exam: See Below (See dictation) Course - Orders/Labs/Meds Orders: Active Orders 24 hr Category Date Time Status CBC WITH AUTO DIFF [HEME] Stat Lab 09/22/17 01:34 Ordered COMPREHENSIVE METABOLIC PN,CMP [CHEM] Stat Lab 09/22/17 01:34 Ordered CULTURE URINE [RM] Stat Lab 09/22/17 01:35 Ordered DRUG SCREEN, URINE [URCHEM] Stat Lab 09/22/17 01:35 Ordered HCG QUALITATIVE,SERUM [CHEM] Stat Lab 09/22/17 01:35 Ordered UA W/MICROSCOPIC [URIN] Stat Lab 09/22/17 01:34 Ordered Departure - Departure Time of Disposition: 01:38 Disposition: Home, Self-Care 01 Condition: Good Clinical Impression: Encounter for medical screening examination, History of nephrolithiasis - Discharge Information Additional Instructions: The following information is given to patients seen in the emergency department who are being discharged to home. This information is to outline your options for follow-up care. We provide all patients seen in our emergency department with a follow-up referral. The need for follow-up, as well as the timing and circumstances, are variable depending upon the specifics of your emergency department visit. If you don't have a primary care physician on staff, we will provide you with a referral. We always advise you to contact your personal physician following an emergency department visit to inform them of the circumstance of the visit and for follow-up with them and/or the need for any referrals to a consulting specialist. The emergency department will also refer you to a specialist when appropriate. This referral assures that you have the opportunity for followup care with a specialist. All of these measure are taken in an effort to provide you with optimal care, which includes your followup. Under all circumstances we always encourage you to contact your private physician who remains a resource for coordinating your care. When calling for followup care, please make the office aware that this follow-up is from your recent emergency room visit. If for any reason you are refused follow-up, please contact the [facility] emergency department at and asked to speak to the emergency department charge nurse. Specialty Care - Urology [address] [place] [id number] Continue current medications follow-up urology call to schedule routine appointment return as needed as discussed[] - My Orders Last 24 Hours: My Active Orders 09/22/17 01:34 CBC WITH AUTO DIFF [HEME] Stat COMPREHENSIVE METABOLIC PN,CMP [CHEM] Stat UA W/MICROSCOPIC [URIN] Stat 09/22/17 01:35 CULTURE URINE [RM] Stat DRUG SCREEN, URINE [URCHEM] Stat HCG QUALITATIVE,SERUM [CHEM] Stat - Assessment/Plan Last 24 Hours: My Active Orders 09/22/17 01:34 CBC WITH AUTO DIFF [HEME] Stat COMPREHENSIVE METABOLIC PN,CMP [CHEM] Stat UA W/MICROSCOPIC [URIN] Stat 09/22/17 01:35 CULTURE URINE [RM] Stat DRUG SCREEN, URINE [URCHEM] Stat HCG QUALITATIVE,SERUM [CHEM] Stat
[2017-09-22 01:40] VITALS: BP 121/79
[2017-09-22 02:15] LABS: CHLORIDE,CL 104 mmol/L (98-107); SODIUM,NA 139 mmol/L (136-145)
== END 2017-09-22 03:18 | disposition home or self-care (01) ==
LOC: MW.ED 01:32
DX: Z13.9 Encounter for screening, unspecified (principal); Z87.442 Personal history of urinary calculi; Z88.5 Allergy status to narcotic agent; Z88.8 Allergy status to other drugs, medicaments and biological substances; Z88.6 Allergy status to analgesic agent
CPT/HCPCS: 36415; 80053; 80305-QW; 81001; 84702; 85025; 87086; 99284

== ENCOUNTER 2017-10-25 15:50 | Emergency (ER) | payer BC ==
--- NOTE | 2017-10-25 16:11 | EDM.PDOC ---
ED HPI GENERAL MEDICAL PROBLEM - General Chief Complaint: Lower Extremity Injury/Pain Stated Complaint: LEFT BIG TOE PAIN Time Seen by Provider: 10/25/17 16:10 Source of Information: Reports: Patient History Limitations: Reports: No Limitations - History of Present Illness INITIAL COMMENTS - FREE TEXT/NARRATIVE: HISTORY AND PHYSICAL: History of present illness: Patient is a 42-year-old female who presents to the emergency room with left third toe pain. She states last night she dropped a wrench on her foot and since that time has had increased pain, swelling and pain with weightbearing/ ambulation. There is a laceration below the nailbed with mild bleeding noted. Tetanus was updated 3 weeks ago, routinely through her primary care provider. Review of systems: As per history of present illness and below otherwise all systems reviewed and negative. Past medical history: As per history of present illness and as reviewed below otherwise noncontributory. Surgical history: As per history of present illness and as reviewed below otherwise noncontributory. Social history: No reported history of drug or alcohol abuse. Family history: As per history of present illness and as reviewed below otherwise noncontributory. Physical exam: General: Well-developed and well-nourished 42-year-old female. Alert and oriented. Nontoxic appearing and in no acute distress. HEENT: Atraumatic, normocephalic, pupils equal and reactive bilaterally, negative for conjunctival pallor or scleral icterus, mucous membranes moist, throat clear, neck supple, nontender, trachea midline. No drooling or trismus noted. No meningeal signs Lungs: Clear to auscultation, breath sounds equal bilaterally, chest nontender. Heart: S1S2, regular rate and rhythm without overt murmur Abdomen: Soft, nondistended, nontender. Negative for masses or hepatosplenomegaly. Negative for costovertebral tenderness. Pelvis: Stable nontender. Genitourinary: Deferred. Rectal: Deferred. Skin: 0.5 cm laceration below the base of the left third toe nailbed. Otherwise skin is intact, warm, dry. No lesions or rashes noted. Extremities: Moves all per self; pain with movement of the left middle toe. Good flexion and extenion of the ankle. Cap refill less than 3 seconds. Strong pedal pulse, negative for cords or calf pain. Neurovascular unremarkable. Neuro: Awake, alert, oriented. Cranial nerves II through XII unremarkable. Cerebellum unremarkable. Motor and sensory unremarkable throughout. Exam nonfocal. Notes: The x-ray shows a distal tuft fracture of the left third toe. The toe was cleansed with chlorhexidine. Dermabond was used to close the area; she declined stitches. Postop shoe and crutches were given. 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 She voices understanding and is agreeable to plan of care. Denies any further questions or concerns at this time. Diagnostics: Left toe x-ray Therapeutics: [place], Dermabond, Crutches and Post Op Shoe Prescription: Bactrim DS BID x 10 days Tylenol #3 (#20) Impression: Left Middle Toe Fracture, Open Plan: 1. Rest, ice, elevate the affected extremity. Use the postop shoe and crutches as directed. 2. Take your medications as prescribed. The pain medication is a narcotic and may cause drowsiness. SO do not take while driving or needing to be functioning outside the house 3. Follow-up with the glazing department supervisor in the next 1-2 days. Return to the ED as needed and as discussed. Definitive disposition and diagnosis as appropriate pending reevaluation and review of above. Duration: Day(s): Left middle toe Pain Score (Numeric/FACES): 7 - Related Data Allergies Allergy/AdvReac Type Severity Reaction Status Date / Time ketorolac [From Toradol] Allergy Itching Verified 10/25/17 16:03 propoxyphene Allergy Itching Verified 10/25/17 16:03 [From Darvocet-N] tramadol Allergy Itching Verified 10/25/17 16:03 Home Meds: Home Meds Acetaminophen with Codeine [Tylenol with Codeine #3 Tablet] 1 each PO Q4HR PRN # 20 tablet 10/25/17 [Rx] Sulfamethoxazole/Trimethoprim [Bactrim Ds Tablet] 1 each PO BID 10 Days #20 tablet 10/25/17 [Rx] Past Medical History HEENT History: Reports: None Respiratory History: Reports: Asthma Gastrointestinal History: Reports: None Genitourinary History: Reports: Renal Calculus, UTI, 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: Musculoskeletal History: Reports: Fracture Neurological History: Reports: Migraines - Infectious Disease History Infectious Disease History: Reports: Other (See Below) Other Infectious Disease History: telugu measles - Past Surgical History HEENT Surgical History: Reports: Oral Surgery, Tonsillectomy Respiratory Surgical History: Reports: None GI Surgical History: Reports: Appendectomy, Cholecystectomy Female Surgical History: Reports: Hysterectomy Neurological Surgical History: Reports: None Musculoskeletal Surgical History: Reports: None Social & Family History - Family History Family Medical History: Noncontributory - Caffeine Use Caffeine Use: Reports: Soda Review of Systems - Review of Systems Review Of Systems: ROS reveals no pertinent complaints other than HPI. ED EXAM, GENERAL - Physical Exam Exam: See Below (See dictation) Course - Vital Signs Last Recorded V/S: Last Vital Signs Temp 98.0 F 10/25/17 16:05 Pulse 64 10/25/17 16:56 Resp 18 10/25/17 16:56 BP 123/70 10/25/17 16:56 Pulse Ox 96 10/25/17 16:56 - Orders/Labs/Meds Orders: Active Orders 24 hr Category Date Time Status Communication Order [RC] STAT Care 10/25/17 16:49 Active Toes Third Digit Lt T2 [CR] Stat Exams 10/25/17 16:28 Taken DME for Discharge [COMM] Stat Oth 10/25/17 17:22 Ordered Meds: Medications Discontinued Medications Generic Name Dose Route Start Last Admin Trade Name Freq PRN Reason Stop Dose Admin Hydrocodone Bitart/Acetaminophen 1 tab 10/25/17 16:28 10/25/17 16:52 [place] 325-5 Mg PO 10/25/17 16:29 1 tab ONETIME ONE Administration Cefazolin Sodium 1 gm 10/25/17 17:35 Ancef IM 10/25/17 17:36 ONETIME ONE Octyl Cyanoacrylate 1 applic 10/25/17 17:42 Dermabond Advance TOP 10/25/17 17:43 ONETIME ONE Departure - Departure Time of Disposition: 17:40 Disposition: Home, Self-Care 01 Clinical Impression: Toe fracture, left Qualifiers: Encounter type: initial encounter Toe: lesser toe Fracture type: open Phalanx: middle Fracture alignment: nondisplaced Qualified Code(s): S92.525B - Nondisplaced fracture of middle phalanx of left lesser toe(s), initial encounter for open fracture - Discharge Information Prescriptions: Acetaminophen with Codeine [Tylenol with Codeine #3 Tablet] 1 each PO Q4HR PRN # 20 tablet PRN Reason: Pain Sulfamethoxazole/Trimethoprim [Bactrim Ds Tablet] 1 each PO BID 10 Days #20 tablet Instructions: Toe Fracture, [id number] Referrals: PCP,None [Primary Care Provider] - Forms: ED Department Discharge Additional Instructions: The following information is given to patients seen in the emergency department who are being discharged to home. This information is to outline your options for follow-up care. We provide all patients seen in our emergency department with a follow-up referral. The need for follow-up, as well as the timing and circumstances, are variable depending upon the specifics of your emergency department visit. If you don't have a primary care physician on staff, we will provide you with a referral. We always advise you to contact your personal physician following an emergency department visit to inform them of the circumstance of the visit and for follow-up with them and/or the need for any referrals to a consulting specialist. The emergency department will also refer you to a specialist when appropriate. This referral assures that you have the opportunity for follow-up care with a specialist. All of these measure are taken in an effort to provide you with optimal care, which includes your follow-up. Under all circumstances we always encourage you to contact your private physician who remains a resource for coordinating your care. When calling for follow-up care, please make the office aware that this follow-up is from your recent emergency room visit. If for any reason you are refused follow-up, please contact the [facility] Emergency Department at and asked to speak to the emergency department charge nurse. Dr Houston [address] [address] 1. Rest, ice, elevate the affected extremity. Use the postop shoe and crutches as directed. 2. Take your medications as prescribed. The pain medication is a narcotic and may cause drowsiness. SO do not take while driving or needing to be functioning outside the house 3. Follow-up with the glazing department supervisor in the next 1-2 days. Return to the ED as needed and as discussed. - My Orders Last 24 Hours: My Active Orders 10/25/17 16:28 Toes Third Digit Lt T2 [CR] Stat 10/25/17 16:49 Communication Order [RC] STAT 10/25/17 17:22 DME for Discharge [COMM] Stat - Assessment/Plan Last 24 Hours: My Active Orders 10/25/17 16:28 Toes Third Digit Lt T2 [CR] Stat 10/25/17 16:49 Communication Order [RC] STAT 10/25/17 17:22 DME for Discharge [COMM] Stat
[2017-10-25] MEDS ORDERED: Acetaminophen/HYDROcodone 325-5 MG Tab PO ONE (16:28)
[2017-10-25 16:57] VITALS: BP 123/70
[2017-10-25] MEDS ORDERED: ceFAZolin 1 GM Vial IM ONE (17:35)
[2017-10-25] MEDS ORDERED: Octyl 2-Cyanoacrylate 1 Tube TOP ONE (17:42)
[2017-10-25] MEDS ORDERED: Water For Injection, Sterile 20 ML SDV INJECT ONE (17:48)
[2017-10-25] MEDS ORDERED: Water For Injection, Sterile 20 ML ONE (17:50)
--- NOTE | 2017-10-26 13:56 | CR ---
EXAM DATE: 10/25/17 PATIENT'S AGE: 42 Patient: AYESAH STOKES Facility: [place], [place] Site . Site : 1975 Study: XRay Extremity Left 3rd digit toe [id number]/[id number] 5:28:32 PM Ordering Physician: Doctor Blake Final Report: Indication: Crush injury Technique: Left 3rd toe 3 views Comparison: None Findings/Impression: Bones: Acute nondisplaced fracture is in the distal tuft of the left 3rd finger. No other osseous abnormality. Joint spaces: Unremarkable. Soft tissues: Unremarkable. Dictated by Gustabo Owusu MD @ Oct 25 2017 6:00PM (Electronic Signature) Report Signed by Proxy. [facility]
== END 2017-10-25 18:15 | disposition home or self-care (01) ==
LOC: MW.ED 15:50
DX: S92.525B Nondisplaced fracture of middle phalanx of left lesser toe(s), initial encounter for open fracture (principal); J45.909 Unspecified asthma, uncomplicated; W20.8XXA Other cause of strike by thrown, projected or falling object, initial encounter; Z88.8 Allergy status to other drugs, medicaments and biological substances
CPT/HCPCS: 12001; 73660; 96372; 99283; A9270; J0690; 99282

== ENCOUNTER 2020-05-10 21:07 | Emergency (ER) | payer SELFPAY ==
[2020-05-10 21:21] VITALS: BP 120/80; PULSE 73
--- NOTE | 2020-05-10 22:12 | EDM.PDOC ---
ED HPI GENERAL MEDICAL PROBLEM - General Chief Complaint: Lower Extremity Injury/Pain Stated Complaint: RT KNEE ISSUES Time Seen by Provider: 05/10/20 21:23 Source of Information: Reports: Patient History Limitations: Reports: No Limitations - History of Present Illness INITIAL COMMENTS - FREE TEXT/NARRATIVE: HISTORY AND PHYSICAL: History of present illness: Patient is a 44-year-old female presenting to the ED with right knee pain x2 weeks. Patient states that she was playing darts when she planted her foot and twisted and her knee immediately locked up. She states that she forced her knee out of the locked position and immediately felt intense pain. She has noted some swelling but no discoloration. She states that her pain is constant and described as sharp. Patient states that she has tried [id number] Tylenol, IcyHot, Epsom salt baths, lidocaine patches, Salonpas, and a knee brace.She states that bearing weight and moving her knee elicits pain but she has been able to do so. Patient denies fever, chills, chest pain, shortness of breath, or cough. Denies headache, neck stiff ness, change in vision, syncope, or near syncope. Denies nausea, vomiting, abdominal pain, diarrhea, constipation, or dysuria. Has not noted any blood in urine or stool. Patient has been eating and drinking appropriately. Review of systems: As per history of present illness and below otherwise all systems reviewed and negative. Past medical history: As per history of present illness and as reviewed below otherwise noncontributory. Surgical history: As per history of present illness and as reviewed below otherwise noncontributory. Social history: See social history for further information Family history: As per history of present illness and as reviewed below otherwise noncontributory. Physical exam: General: Patient is alert, oriented, and in no acute distress. Patient sitting comfortably on exam table. Vital stable and reviewed by me HEENT: Atraumatic, normocephalic, pupils equal and reactive bilaterally, negative for conjunctival pallor or scleral icterus, mucous membranes moist, TMs normal bilaterally, throat clear, neck supple, nontender, trachea midline. No drooling or trismus noted. No meningeal signs. No hot potato voice noted. Lungs: Clear to auscultation, breath sounds equal bilaterally, chest nontender. Heart: S1S2, regular rate and rhythm without overt murmur Abdomen: Soft, nondistended, nontender. Negative for masses or hepatosplenomegaly. Negative for costovertebral tenderness. Genitourinary: Deferred. Rectal: Deferred. Skin: Intact, warm, dry. No lesions or rashes noted. Extremities: Exam of right knee is limited due to pain. No erythema, edema noted to the RLE. There is some joint line tenderness along the medial aspect of the right knee without effusion. DP/PT pulses grossly intact of the RLE with cap refill < 2 seconds. Otherwise, atraumatic, negative for cords or calf pain. Neurovascular unremarkable. No gross deformities noted. Compartments are soft. Neuro: Awake, alert, oriented. Cranial nerves II through XII unremarkable. Cerebellum unremarkable. Motor and sensory unremarkable throughout. Exam nonfoca l. Notes: Symptoms that were prompt return to the ED thoroughly discussed with patient. Discussed importance of follow-up with an orthopedic provider. Voices understanding and is agreeable to plan of care. Denies any further questions or concerns at this time. Diagnostics: Knee XR Therapeutics: Crutches, knee immobilizer Prescription: None Impression: Right knee strain r/o meniscus/ligamentous injury Plan: 1. Rest, ice, elevate the affected extremity. You can apply ice 15 minutes on, 15 minutes off. Use crutches and immobilizer until orthopedic evaluation. 2. Tylenol and/or Ibuprofen as directed for pain management or discomfort. 3. Follow up with the Orthopedic provider as discussed. Return to the ED as needed and as discussed. Definitive disposition and diagnosis as appropriate pending reevaluation and review of above. right knee Pain Score (Numeric/FACES): 8 - Related Data Allergies Allergy/AdvReac Type Severity Reaction Status Date / Time ketorolac [From Toradol] Allergy Itching Verified 05/10/20 21:17 propoxyphene Allergy Itching Verified 05/10/20 21:17 [From Darvocet-N] tramadol Allergy Itching Verified 05/10/20 21:17 Home Meds: Home Meds . 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: Musculoskeletal History: Reports: Fracture Neurological History: Reports: Migraines Hematologic History: Reports: None Immunologic History: Reports: None Oncologic (Cancer) History: Reports: None - Infectious Disease History Infectious Disease History: Reports: Other (See Below) Other Infectious Disease History: yi measles - Past Surgical History Head Surgeries/Procedures: Reports: None HEENT Surgical History: Reports: Oral Surgery, Tonsillectomy Respiratory Surgical History: Reports: None GI Surgical History: Reports: Appendectomy, Cholecystectomy Female Surgical History: Reports: Hysterectomy Neurological Surgical History: Reports: None Musculoskeletal Surgical History: Reports: None Social & Family History - Family History Family Medical History: No Pertinent Family History - Tobacco Use Tobacco Use Status *Q: Current Every Day Tobacco User Years of Tobacco use: 30 Packs/Tins Daily: 1 - Caffeine Use Caffeine Use: Reports: Coffee - Recreational Drug Use Recreational Drug Use: No Review of Systems - Review of Systems Review Of Systems: Comprehensive ROS is negative, except as noted in HPI. ED EXAM, GENERAL - Physical Exam Exam: See Below (see dictation) Course - Vital Signs Last Recorded V/S: Last Vital Signs Temp 96.5 F L 05/10/20 21:18 Pulse 73 05/10/20 21:18 Resp 17 05/10/20 21:18 BP 120/80 05/10/20 21:18 Pulse Ox 97 05/10/20 21:18 - Orders/Labs/Meds Orders: Active Orders 24 hr Category Date Time Status DME for Discharge [COMM] Stat Oth 05/10/20 22:27 Ordered Meds: Medications Discontinued Medications Generic Name Dose Route Start Last Admin Trade Name Freq PRN Reason Stop Dose Admin Ibuprofen 800 mg 05/10/20 22:35 05/10/20 22:40 Motrin PO 05/10/20 22:36 800 mg ONETIME ONE Administration Departure - Departure Time of Disposition: 22:28 Disposition: Home, Self-Care 01 Clinical Impression: Strain of right knee Qualifiers: Encounter type: initial encounter Qualified Code(s): S86.911A - Strain of unspecified muscle(s) and tendon(s) at lower leg level, right leg, initial encounter - Discharge Information Instructions: Muscle Strain, [id number] Referrals: PCP,None [Primary Care Provider] - Forms: ED Department Discharge Additional Instructions: The following information is given to patients seen in the emergency department who are being discharged to home. This information is to outline your options for follow-up care. We provide all patients seen in our emergency department with a follow-up referral. The need for follow-up, as well as the timing and circumstances, are variable depending upon the specifics of your emergency department visit. If you don't have a primary care physician on staff, we will provide you with a referral. We always advise you to contact your personal physician following an emergency department visit to inform them of the circumstance of the visit and for follow-up with them and/or the need for any referrals to a consulting specialist. The emergency department will also refer you to a specialist when appropriate. This referral assures that you have the opportunity for follow-up care with a specialist. All of these measure are taken in an effort to provide you with optimal care, which includes your follow-up. Under all circumstances we always encourage you to contact your private physician who remains a resource for coordinating your care. When calling for follow-up care, please make the office aware that this follow-up is from your recent emergency room visit. If for any reason you are refused follow-up, please contact the [facility] Emergency Department at and asked to speak to the emergency department charge nurse. [facility] [address] [place], [place] [id number] [address] [address] [facility] [address] [place] [address], [address] [place] [address] 1. Rest, ice, elevate the affected extremity. You can apply ice 15 minutes on, 15 minutes off. Use crutches and immobilizer until orthopedic evaluation. 2. Tylenol and/or Ibuprofen as directed for pain management or discomfort. 3. Follow up with the Orthopedic provider as discussed. Return to the ED as needed and as discussed. Sepsis Event Note (ED) - Evaluation Sepsis Screening Result: No Definite Risk - My Orders Last 24 Hours: My Active Orders 05/10/20 22:27 DME for Discharge [COMM] Stat - Assessment/Plan Last 24 Hours: My Active Orders 05/10/20 22:27 DME for Discharge [COMM] Stat
[2020-05-10] MEDS ORDERED: Ibuprofen 800 MG Tab PO ONE (22:35)
--- NOTE | 2020-05-10 22:57 | CR ---
INDICATION: Right knee pain. TECHNIQUE: X-ray right knee, 3 views. COMPARISON: None available. FINDINGS: The alignment is normal. Negative for acute fracture or dislocation. The joint spaces are preserved. No knee joint effusion is visualized. The overlying soft tissues unremarkable. IMPRESSION: Unremarkable radiographs of the right knee. Dictated by Kell Bailey MD @ May 10 2020 10:54PM Signed by Dr. Kell Bailey @ May 10 2020 10:54PM
== END 2020-05-10 22:54 | disposition home or self-care (01) ==
LOC: MW.ED 21:07
DX: S86.911A Strain of unspecified muscle(s) and tendon(s) at lower leg level, right leg, initial encounter (principal); J45.909 Unspecified asthma, uncomplicated; Z88.6 Allergy status to analgesic agent; Z88.5 Allergy status to narcotic agent; Z88.8 Allergy status to other drugs, medicaments and biological substances; Z72.0 Tobacco use; X50.1XXA Overexertion from prolonged static or awkward postures, initial encounter
CPT/HCPCS: 73562; 99283; A9270; 99282